=== PATIENT | female | born 1965 | race Caucasian/White ===

== ENCOUNTER 2019-10-26 20:14 | Emergency (ER) | payer OTHER ==
[~2019-10-26] VITALS: Ht 160 cm; Wt 81.6 kg
[~2019-10-26 20:14] MED LIST: ADVAIR 100/501 E1 INH; ALBUTEROL0.09 MG/A2 INH; AMOXICILLIN500 MG PO; BIAXIN500 MG PO; CIPRO500 MG PO; CLARITIN10 MG PO; Esidrex,Oretic,25 MG PO; FIORICET 325 MG1 TAB PO; FLAGYL500 MG PO; Fioricet 325 MG1 TAB PO; IBU800 M1 PO; LISINOPRIL5 MG PO; LOMOTIL 0.025 M1 TA1 PO; PERCOCET 325 MG1 TA2 PO; PROVENTIL0.09 MG/A1 INH; PROVENTIL0.09 MG/AC IH; SIMVASTATIN5 MG PO; SYNTHROID0.15 MG PO; TRAMADOL HCL50 MG PO; VICODIN HP 6601 TA1 PO; VITAMIN D1000 IU PO; ZITHROMAX Z PA250 MG PO; ZOFRAN ODT4 MG SL
[2019-10-26 20:25] VITALS: BP 136/91
[2019-10-26] MEDS ORDERED: PREDNISONE20 M1 PO (20:35)
[2019-10-26] MEDS ORDERED: VALTREX1000 MG PO (20:35)
== END 2019-10-26 20:36 | disposition home or self-care (01) ==
LOC: ED 20:14
DX: B02.9 Zoster without complications (principal); Z79.899 Other long term (current) drug therapy; Z88.8 Allergy status to other drugs, medicaments and biological substances